=== PATIENT | male | born 1975 | race Asian ===

== ENCOUNTER 2020-03-15 20:34 | Emergency (ER) | payer OTHER, SELFPAY ==
[2020-03-15 20:37] VITALS: BP 112/78; PULSE 82; RESP 18; TEMP 37.2; O2SAT 97
--- NOTE | 2020-03-15 21:20 | XR_ITS ---
EXAMINATION: XR SHOULDER, LEFT CLINICAL INFORMATION: Fall. Question dislocation COMPARISON: None TECHNIQUE: AP external rotation, Grashey, scapular Y, and axillary views of the left shoulder. FINDINGS: There is no acute fracture or dislocation. The glenohumeral joint is well aligned. The joint space is maintained. The acromioclavicular joint is intact. The visualized lung is clear. The visualized ribs are intact. XR/XR shoulder LT min 2V IMPRESSION: No fracture or dislocation.
--- NOTE | 2020-03-15 21:21 | ED_ITS ---
HPI - Extremity Injury (Upper) General Chief Complaint: Fall Stated Complaint: fall Time Seen by Provider: 03/15/20 21:09 Source: patient Mode of arrival: ambulatory Limitations: no limitations History of Present Illness HPI narrative: pt slipped on ice and landed on L shoulder , c/o pain in shoulder unable to abduct his shoulder, no other injury complaint: injury to: left Onset (ago): hour(s) Related Data Previous Rx's Medication Instructions Recorded ibuprofen 600 mg PO Q6H PRN #20 tab 03/15/20 Allergies Allergy/AdvReac Type Severity Reaction Status Date / Time No Known Allergies Allergy Mild NONE Verified 03/15/20 20:37 Review of Systems Review of Systems: REVIEW OF SYSTEMS: Pertinent positives and negatives are stated above in the history. GEN: no fevers, chills, fatigue HEENT: no nasal congestion, sore throat, ear pain NEURO: no headache, dizziness, focal weakness PULM: no cough, shortness of breath CV: no chest pain, palpitations, LE edema ABD: no abdominal pain, nausea, vomiting, diarrhea : no dysuria, urgency, frequency SKIN: no rash ROS otherwise negative x 10 [facility] Social History Social History Advance Directives: No Advance Directives Information Provided: Yes Physical Exam Vital Signs: Vital Signs: Last Vital Signs Temp 99.0 F 03/15/20 20:37 Pulse 82 03/15/20 20:37 Resp 18 03/15/20 20:37 BP 112/78 03/15/20 20:37 Pulse Ox 97 03/15/20 20:37 Body Mass Index 30.0 Appearance: Alert. Oriented X3. No acute distress. Eyes: Pupils equal, round and reactive to light. ENT: Pharynx normal. Neck: Normal inspection. Neck supple. CVS: Normal heart rate and rhythm. Pulses normal. Respiratory: No respiratory distress. Breath sounds normal. Abdomen: Soft and nontender. Skin: Skin warm and dry. Normal skin color. Normal skin turgor. Extremities: No lower extremity edema. Left shoulder: Obvious deformity suggestive of dislocation neurovascular intact Neuro: Oriented X 3. No motor deficit. No sensory deficit. MDM - Extremity Injury (Upper) MDM Narrative Medical decision making narrative: Patient x-ray negative for fracture dislocation likely contusion will discharge patient home on analgesics Discharge Plan Discharge Clinical Impression: Rotator cuff (capsule) sprain Patient Disposition: Home, Self-Care Instructions: Rotator Cuff Injury (ED) Additional Instructions: Rest your left shoulder, apply ice avoid over abducting your left shoulder. Pain medicine as advised Prescriptions: New ibuprofen 600 mg tablet 600 mg PO Q6H PRN (Reason: pain) Qty: 20 RF: 0 Interventions: ED Discharge Assessment Last Done: 03/15/20 22:20 Discharge Date/Time: 03/15/20 22:21
== END 2020-03-15 22:21 | disposition home or self-care (01) ==
PROVIDERS: Emergency Provider Internal Medicine; PCP Internal Medicine
DX: S43.422A Sprain of left rotator cuff capsule, initial encounter (principal); W00.0XXA Fall on same level due to ice and snow, initial encounter; Y93.9 Activity, unspecified; Y92.9 Unspecified place or not applicable; Y99.9 Unspecified external cause status
CPT/HCPCS: 73030; 99283